=== PATIENT | male | born 1985 | race African-American/Black ===

== ENCOUNTER 2018-11-22 09:15 | Emergency (ER) | payer MEDICARE ==
[~2018-11-22] VITALS: Ht 185.4 cm; Wt 109.0 kg
[2018-11-22 09:42] VITALS: BP 132/74
[2018-11-22] MEDS ORDERED: TETANUS, DIPHTHERIA, PERTUSSIS VAC/PF 0.5ML (>7YR OLD) IM ONE (10:45)
[2018-11-22] MEDS ORDERED: CEPHALEXIN 250MG CAPSULE PO ONE (10:45)
== END 2018-11-22 11:31 | disposition home or self-care (01) ==
LOC: ER 09:15
DX: S01.312A Laceration without foreign body of left ear, initial encounter (principal); W22.8XXA Striking against or struck by other objects, initial encounter; Y93.89 Activity, other specified; Y92.89 Other specified places as the place of occurrence of the external cause; Z23 Encounter for immunization
CPT/HCPCS: 12011; 90471; 90715; 99283